=== PATIENT | female | born 1985 | race Caucasian/White ===

== ENCOUNTER 2018-09-13 12:35 | Emergency (ER) | payer BC ==
[2018-09-13] MEDS ORDERED: SODIUM CHLORIDE 1,000 ML IV ONE (12:50)
[2018-09-13] MEDS ORDERED: METOCLOPRAMIDE HCL INJECTION 10 MG/2 ML VIAL IVPUSH ONE (12:50)
--- NOTE | 2018-09-13 12:59 | PDOC ---
History of Present Illness - General Chief Complaint: Headache Stated Complaint: WEAK & HEADACHE Time Seen by Provider: 09/13/18 12:49 History Source: Patient Exam Limitations: No Limitations - History of Present Illness Initial Comments: 09/13/18 12:51 33y F hx of hypothyroidism presenst with genaerlized weakness and mild head ' heaviness'. The patient states that she's been having a URI like symptoms for the last several weeks was recently treated with amoxicillin, and this started on steroids for a cough. Her significant improved however for the last 2 days she has felt a mild "head pressure/heaviness" and has felt generally weak. Today while she was at work she felt very lightheaded and felt like she was about to pass out so she came in for further evaluation. She endorses is some nausea. Pt denies any fever/chills, vomiting, neck pain, cp, sob, cough, abd pain, diarrhea, dysuria, melena, bpr. Past History - Past Medical History Allergies/Adverse Reactions: Allergies Allergy/AdvReac Type Severity Reaction Status Date / Time amoxicillin Allergy Unknown Verified 09/13/18 12:45 Sulfa (Sulfonamide Allergy Unknown Verified 09/13/18 12:45 Antibiotics) Home Medications: Ambulatory Orders Levothyroxine [Synthroid -] 25 mcg PO DAILY 09/13/18 Review of Systems - Review of Systems Able to Perform ROS?: Yes Comments:: 09/13/18 12:59 Constitutional - no reported Fever, Chills, HEENT: no reported vision changes, sore throat Respiratory: no reported cough, sob, hemoptysis Cardiac: no reported chest pain, palpitations, light headedness, leg swelling Abd/GI: +nausea, no reported abd pain, vomiting, blood per rectum, melena, diarrhea : no reported dysuria, frequency, discharge Musculskelatal - no reported back pain, joint swelling skin - no reported bruising, erythema, rash neurological: +headache no reported , numbness, focal weakness, tingling, ataxia , hematologic: no reported easy bruising, easy bleeding *Physical Exam - Physical Exam Comments: 09/13/18 13:01 GENERAL: The patient is awake, alert, and fully oriented, Nontoxic - in no acute distress. HEAD: Normocephalic, atraumatic. EYES: extraocular movements intact, sclera anicteric, conjunctiva clear. ENT: Normal voice, Moist mucous membranes. NECK: Normal range of motion, supple LUNGS: Breath sounds equal, clear to auscultation bilaterally. No wheezes, no rhonchi, no rales. HEART: Regular rate and rhythm, normal S1 and S2 without murmur, rub or gallop. ABDOMEN: Soft, nontender, normoactive bowel sounds. No guarding, no rebound. . No CVA tenderness EXTREMITIES: Normal range of motion, no edema. No calf tenderness negative Homans signm, NEUROLOGICAL: No facial assymetry, Normal speech, moving all 4 extremities spontaneously and symmetrically, sensation intact in upper and lower extremities , symmetrically reactive to light, unable to appreciate papilledema PSYCH: Normal mood, normal affect. SKIN: Warm, Dry, normal turgor, Heart Score/ECG Review - ECG Impressions Comment:: 09/13/18 17:01 Twelve-lead EKG was performed and reviewed by me. There is normal sinus rhythm with a rate of 101 The axis is normal. The intervals are normal. There are no ST or T wave abnormalities. Impression: sinus tachycadia ED Treatment Course - LABORATORY CBC & Chemistry Diagram: 09/13/18 13:23 09/13/18 13:23 Medical Decision Making - Medical Decision Making 09/13/18 13:01 33-year-old female recent history of URI presenting with generalized weakness, malaise, lightheadedness, head pressure Patient's physical exam is nonfocal Suspect the patient's symptoms may be secondary to dehydration, viral syndrome Signs of papilledema to suggest IIH Will obtain blood work to rule out normal derangements, anemia' UA to rule out UTI, Fluids for hydration, Reglan for headache and nausea Will reassess 09/13/18 15:01 The patient is feeling improved, the patient's lab work was unremarkable. We'll discharge patient with outpatient follow-up I suspect her symptoms are secondary to a sinus headache. We'll have her follow-up with Dr. Samano as an outpatient. Return precautions were discussed I discussed the physical exam findings, ancillary test results and final diagnoses with the patient. I answered all of the patient's questions. The patient was satisfied with the care received and felt comfortable with the discharge plan and treatment plan. The patient will call their primary care physician within 24 hours to arrange follow-up and will return to the Emergency Department with any new, persistent or worsening symptoms. *DC/Admit/Observation/Transfer Diagnosis at time of Disposition: Sinus headache - Discharge Dispostion Disposition: HOME Condition at time of disposition: Improved Decision to Admit order: No - Referrals Referrals: Festus Ritter MD [Staff Physician] - - Patient Instructions Printed Discharge Instructions: DI for Sinus Headache Additional Instructions: Return to the emergency department immediately with ANY new, persistent or worsening symptoms including worsening headache, any blurry vision, numbness/ tingling/weakness, persistent nausea and vomiting or any other concerns. Make sure you are getting adaqute sleep and hydration. You MUST call and follow up with your doctor in 2-3 days for further evaluation of your symptoms. Your emergency department visit is not complete without a followup with your doctor for reevaluation. Results were discussed with you. Please make sure your doctor reviews the results of your emergency evaluation. Print Language: DANISH - Post Discharge Activity
[2018-09-13] MEDS ORDERED: METOCLOPRAMIDE HCL INJECTION 10 MG/2 ML VIAL ONE (13:27)
[2018-09-13 13:30] LABS: PH,URINE 5.5 (4.5-8); URINE APPEARANCE Clear; URINE BILIRUBIN Negative (NEGATIVE); URINE COLOR Amber; URINE GLUCOSE (UA) Negative (NEGATIVE); URINE KETONE Negative (NEGATIVE); URINE LEUK ESTERASE Negative (NEGATIVE); URINE NITRITE Negative (NEGATIVE); URINE PROTEIN Negative (NEGATIVE); URINE UROBILINOGEN 0.2 (0.2-1.0)
[2018-09-13 13:33] LABS: BASO % 2.2 % (0-2.0); EOS % 2.5 % (0-4.5); HEMATOCRIT 41.4 % (32.4-45.2); HEMOGLOBIN 13.9 GM/dl (10.7-15.3); LYMPH % 28.6 % (8-40); MCH 30.9 pg (25.7-33.7); MCHC 33.6 g/dl (32.0-36.0); MEAN PLT VOLUME 8.6 fl (7.5-11.1); MONO % 3.9 % (3.8-10.2); NEUT % 62.8 % (42.8-82.8); PLATELET COUNT 271 K/MM3 (134-434); RDW 11.2 % (11.6-15.6); WHITE BLOOD COUNT 9.1 K/mm3 (4.0-10.8)
[2018-09-13 13:37] LABS: HCG,QUALITATIVE URINE Negative
[2018-09-13 13:42] LABS: ALBUMIN 3.4 g/dl (3.5-5.0); ALK PHOS 55 U/L (32-92); ANION GAP 8 MMOL/L (8-16); BILIRUBIN,TOTAL 0.5 mg/dl (0.2-1.0); BLOOD UREA NITROGEN 13 mg/dl (7-18); CALCIUM 8.7 mg/dl (8.4-10.2); CHLORIDE 106 mmol/L (98-107); CO2 21 mmol/L (22-28); CREATININE 0.6 mg/dl (0.6-1.3); GLUCOSE,RANDOM 99 mg/dl (74-106); POTASSIUM 3.5 mmol/L (3.5-5.1); SGOT/AST 15 U/L (10-42); SGPT/ALT 16 U/L (10-40); SODIUM 135 mmol/L (136-145)
[2018-09-13 15:11] VITALS: BP 122/83; PULSE 95; TEMP 98.6
--- NOTE | 2018-09-17 23:53 | EKG ---
Test Reason : Blood Pressure : / mmHG Vent. Rate : 101 BPM Atrial Rate : 101 BPM P-R Int : 128 ms QRS Dur : 066 ms QT Int : 356 ms P-R-T Axes : 072 012 046 degrees QTc Int : 461 ms SINUS TACHYCARDIA CANNOT RULE OUT ANTERIOR INFARCT , AGE UNDETERMINED ABNORMAL ECG NO PREVIOUS ECGS AVAILABLE Confirmed by MICHAEL REYES, KASSIE ([id number]) on 09/17/2018 11:52:39 PM Referred By: ISHA MCGRAW Confirmed By:KASSIE RODRIGUEZ MD
== END 2018-09-13 15:15 | disposition home or self-care (01) ==
LOC: FER 12:35
PROC: 3E033GC Introduction of Other Therapeutic Substance into Peripheral Vein, Percutaneous Approach (ICD-10-PCS; principal; 2018-09-13)
PROC: 3E0337Z Introduction of Electrolytic and Water Balance Substance into Peripheral Vein, Percutaneous Approach (ICD-10-PCS; 2018-09-13)
DX: G44.89 Other headache syndrome (principal)
CPT/HCPCS: 36415; 80053; 81003; 84443; 84703; 85025; 93005; 99284-25; J7030